=== PATIENT | female | born 1960 | race Caucasian/White ===

== ENCOUNTER 2022-05-28 05:50 | Outpatient (CLI) | payer BC ==
[~2022-05-28] VITALS: Ht 152.4 cm; Wt 59.0 kg
[2022-05-28] MEDS ORDERED: MAGN250T31 PO (09:07)
[2022-05-28] MEDS ORDERED: NF-VITD400 PO (09:07)
[2022-05-28] MEDS ORDERED: DULO60CA7 PO (09:07)
[2022-05-28] MEDS ORDERED: GABA300C PO (09:07)
[2022-05-28] MEDS ORDERED: DIGESTIVE HEALTH PO (09:07)
[2022-05-28] MEDS ORDERED: ALPR0.5T PO (09:07)
[2022-05-28] MEDS ORDERED: LISI-595 PO (09:07)
[2022-05-28] MEDS ORDERED: TPR25T PO (09:07)
[2022-05-28] MEDS ORDERED: FEXO180T84 PO (09:07)
[2022-05-28] MEDS ORDERED: OMEP10SU2 PO (09:07)
[2022-05-28] MEDS ORDERED: NF-CRES10T PO (09:07)
[2022-05-28] MEDS ORDERED: CHANTIX PO (09:07)
[2022-05-28] MEDS ORDERED: ASPI-999 PO (09:07)
== END 2022-05-28 10:19 ==
LOC: PREOP 05:50
PROVIDERS: ATTEND Specialist
DX: Z01.818 Encounter for other preprocedural examination (principal); H25.89 Other age-related cataract

== ENCOUNTER 2022-05-31 08:34 | Day surgery (SDC) | payer BC ==
[~2022-05-31] VITALS: Ht 152.4 cm; Wt 59.0 kg
[~2022-05-31 08:34] MED LIST: ALPR0.5T PO; ASPI-999 PO; CHANTIX PO; DIGESTIVE HEALTH PO; DULO60CA7 PO; FEXO180T84 PO; GABA300C PO; LISI-595 PO; MAGN250T31 PO; NF-CRES10T PO; NF-VITD400 PO; OMEP10SU2 PO; TPR25T PO
[2022-05-31] MEDS ORDERED: TIMOLOL MALEATE 0.5% 5 ML (TIMOPTIC) BTL OU PRN (08:45)
[2022-05-31] MEDS ORDERED: POVIDONE (BETADINE) OPHTH SOLN 5% 30 ML OP ONE (08:45)
[2022-05-31] MEDS ORDERED: MOXIFLOXACIN OPHTH SOLN 5 MG/ML 0.3 ML SYRINGE OP ONE (08:45)
[2022-05-31] MEDS: TETRACAINE 0.5% OPHTH SOLN 4 ML BTL (SINGLE DOSE ONLY) OU PRN ×4 (08:57→09:15)
[2022-05-31 09:01] VITALS: BP 157/82
[2022-05-31] MEDS: PHENYLEPHRINE 10% OPHTH (NEO-SYN) 5 ML BTL OU SCH ×3 (09:04→09:15)
[2022-05-31] MEDS: TROPICAMIDE 1% OPH SOLN (MYDRIACYL) 15 ML BTL OP SCH ×3 (09:04→09:15)
--- NOTE | 2022-05-31 09:37 | Ophthalmologist Pre-Op Note ---
Pre-Operative Progress Note H&P Reviewed The H&P was reviewed, patient examined and no changes noted. Date H&P Reviewed: May 31, 2022 Time H&P Reviewed: 09:37 Pre-Op Dx Cataract, Left Eye HEATHER SOUZA MD May 31, 2022 09:37
[2022-05-31] MEDS ORDERED: MIDAZOLAM 2 MG/2 ML (VERSED) VIAL ONE (09:42)
[2022-05-31] MEDS ORDERED: acetaZOLAMIDE ER 500 MG CAP (DIAMOX SEQUELS) PO ONE (10:00)
--- NOTE | 2022-05-31 10:04 | Ophthalmology Operative Report ---
Cataract removal/placement IOL PREOPERATIVE DIAGNOSIS: Cataract Left Eye POSTOPERATIVE DIAGNOSIS: Cataract Left Eye PROCEDURE: Cataract removal and placement of posterior chamber implant, left eye SURGEON: Cooper Souza ANESTHESIA: Topical with sedation COMPLICATIONS: None ESTIMATED BLOOD LOSS: Minimal DESCRIPTION OF PROCEDURE: After proper informed consent was obtained, the patient, a 61 female, was taken to the Operating Room and the left eye was anesthetized with tetracaine. The left eye was then prepped and draped in the usual manner. A wire lid speculum was placed. A paracentesis was made at the left hand position. Preservative free lidocaine was injected into the anterior chamber followed by viscoelastic. A clear corneal incision was made in the temporal position. A capsulorrhexis was preformed and the central nuclear and cortical material were removed. The posterior capsule was polished and an Kareem 25.5 AU00T0 was placed into the capsular bag. The residual viscoelastic was aspirated and balanced saline solution was injected into the anterior chamber. Moxifloxacin was injected into the anterior chamber. The wound was checked and found to be water tight. The patient tolerated the procedure well without complications. COOPER SOUZA MD May 31, 2022 10:04
[2022-05-31 10:10] VITALS: BP 138/83
--- NOTE | 2022-05-31 17:31 | Anesthesia-General Post-Op ---
MAC Patient Condition Mental Status/LOC: Same as Preop Cardiovascular: Satisfactory Nausea/Vomiting: Absent Respiratory: Satisfactory Pain: Controlled Complications: Absent Post Op Complications Complications None Follow Up Care/Instructions Patient Instructions None needed. Anesthesiology Discharge Order Discharge Order Patient is doing well, no complaints, stable vital signs, no apparent adverse anesthesia problems. No complications reported per nursing. ADITHYA VARNER CRNA May 31, 2022 17:31
== END 2022-05-31 10:14 | disposition home or self-care (01) ==
LOC: SDC 08:34
PROVIDERS: ATTEND Specialist
DX: H25.9 Unspecified age-related cataract (principal); Z87.891 Personal history of nicotine dependence; Z79.82 Long term (current) use of aspirin
CPT/HCPCS: 66984; V2632

== ENCOUNTER 2022-06-11 05:29 | Outpatient (CLI) | payer BC | END 2022-06-11 11:33 | disposition home or self-care (01) | LOC: PREOP 05:29 | PROVIDERS: ATTEND Specialist | DX: Z01.818 Encounter for other preprocedural examination (principal); H25.9 Unspecified age-related cataract ==

== ENCOUNTER 2022-06-14 07:55 | Day surgery (SDC) | payer BC ==
[~2022-06-14] VITALS: Ht 152.4 cm; Wt 59.0 kg
[2022-06-14 07:20] VITALS: BP 128/81
[2022-06-14] MEDS ORDERED: MOXIFLOXACIN OPHTH SOLN 5 MG/ML 0.3 ML SYRINGE OP ONE (08:00)
[2022-06-14] MEDS ORDERED: TIMOLOL MALEATE 0.5% 5 ML (TIMOPTIC) BTL OU PRN (08:00)
[2022-06-14] MEDS ORDERED: POVIDONE (BETADINE) OPHTH SOLN 5% 30 ML OP ONE (08:00)
[2022-06-14] MEDS ORDERED: MIDAZOLAM 2 MG/2 ML (VERSED) VIAL ONE (08:12)
[2022-06-14] MEDS: TETRACAINE 0.5% OPHTH SOLN 4 ML BTL (SINGLE DOSE ONLY) OU PRN ×4 (08:13→08:31)
[2022-06-14] MEDS: PHENYLEPHRINE 10% OPHTH (NEO-SYN) 5 ML BTL OU SCH ×3 (08:21→08:31)
[2022-06-14] MEDS: TROPICAMIDE 1% OPH SOLN (MYDRIACYL) 15 ML BTL OP SCH ×3 (08:21→08:31)
--- NOTE | 2022-06-14 08:52 | Ophthalmologist Pre-Op Note ---
Pre-Operative Progress Note H&P Reviewed The H&P was reviewed, patient examined and no changes noted. Date H&P Reviewed: Jun 14, 2022 Time H&P Reviewed: 08:52 Pre-Op Dx Cataract, Right Eye HEATHER SOUZA MD Jun 14, 2022 08:52
--- NOTE | 2022-06-14 09:16 | Ophthalmology Operative Report ---
Cataract removal/placement IOL PREOPERATIVE DIAGNOSIS: Cataract Right Eye POSTOPERATIVE DIAGNOSIS: Cataract Right Eye PROCEDURE: Cataract removal and placement of posterior chamber implant, right eye SURGEON: Cooper Souza ANESTHESIA: Topical with sedation COMPLICATIONS: None ESTIMATED BLOOD LOSS: Minimal DESCRIPTION OF PROCEDURE: After proper informed consent was obtained, the patient, a 61 female, was taken to the Operating Room and the right eye was anesthetized with tetracaine. The right eye was then prepped and draped in the usual manner. A wire lid speculum was placed. A paracentesis was made at the left hand position. Preservative free lidocaine was injected into the anterior chamber followed by viscoelastic. A clear corneal incision was made in the temporal position. A capsulorrhexis was preformed and the central nuclear and cortical material were removed. The posterior capsule was polished and Kareem 26.0 AU00T0 IOL was placed into the capsular bag. The residual viscoelastic was aspirated and balanced saline solution was injected into the anterior chamber. Moxifloxacin was injected into the anterior chamber. The wound was checked and found to be water tight. The patient tolerated the procedure well without complications. COOPER SOUZA MD Jun 14, 2022 09:16
[2022-06-14 09:27] VITALS: BP 128/81
--- NOTE | 2022-06-14 14:46 | Anesthesia-General Post-Op ---
MAC Patient Condition Mental Status/LOC: Same as Preop Cardiovascular: Satisfactory Nausea/Vomiting: Absent Respiratory: Satisfactory Pain: Controlled Complications: Absent Post Op Complications Complications None Follow Up Care/Instructions Patient Instructions None needed. Anesthesiology Discharge Order Discharge Order Patient is doing well, no complaints, stable vital signs, no apparent adverse anesthesia problems. No complications reported per nursing. ESTEFANIA RIVERA CRNA Jun 14, 2022 14:46
== END 2022-06-14 09:28 ==
LOC: SDC 07:55
PROVIDERS: ATTEND Specialist
DX: H25.11 Age-related nuclear cataract, right eye (principal); Z87.891 Personal history of nicotine dependence
CPT/HCPCS: 66984; V2632